=== PATIENT | male | born 1990 | race African-American/Black ===

== ENCOUNTER 2016-07-28 12:35 | Emergency (ER) | payer OTHER ==
[~2016-07-28] VITALS: Ht 182.9 cm; Wt 70.3 kg
[2016-07-28 13:30] VITALS: BP 95/61
[2016-07-28] MEDS ORDERED: TYLENOL EXTRA500 MG ORAL (13:55)
[2016-07-28] MEDS ORDERED: ROBITUSSIN COU118 M4 PO (13:55)
[2016-07-28 14:04] VITALS: BP 95/61
--- NOTE | 2016-07-29 13:17 | Emergency Room Report ---
History of Present Illness General Chief Complaint: Flu Like Symptoms Source: Patient Present Illness [facility] The patient is a 25-year-old male who denies any medical history presenting for 2 days of productive cough, nasal congestion, and subjective fever. The patient also admits to a 5/10 headache. The patient denies recent travel or sick contacts. The patient denies nausea, vomiting, abdominal pain, diarrhea, dizziness, shortness of breath Allergies: Coded Allergies: No Known Allergies (Unverified , 07/28/16) Patient History Past Medical History: see triage record Pertinent Family History: none Reviewed Nursing Documentation: PMH: Agreed, PSxH: Agreed Nursing Documentation-PM Past Medical History: No Stated History Review of Systems All Other Systems: negative except mentioned in HPI Physical Exam Vital Signs Date Time Temp Pulse Resp B/P Pulse Ox O2 Delivery O2 Flow Rate FiO2 07/28/16 12:45 98.2 93 18 95/61 98 Room Air Sp02 EP Interpretation: reviewed, normal General Appearance: no apparent distress, alert, GCS 15, non-toxic Head: normocephalic, atraumatic Eyes: bilateral eye PERRL, bilateral eye normal inspection ENT: hearing grossly normal, normal pharynx, no angioedema, normal voice, TMs + canals normal, uvula midline, moist mucus membranes Neck: full range of motion, supple/symm/no masses Respiratory: chest non-tender, lungs clear, normal breath sounds, no respiratory distress, no wheezing, speaking full sentences Cardiovascular #1: regular rate, rhythm, no edema Cardiovascular #2: 2+ carotid (R), 2+ carotid (L), 2+ radial (R), 2+ radial (L) , 2+ dorsalis pedis (R), 2+ dorsalis pedis (L) Gastrointestinal: normal bowel sounds, non tender, soft, non-distended, no guarding, no rebound Rectal: deferred Genitourinary: normal inspection, no CVA tenderness Musculoskeletal: back normal, gait/station normal, normal range of motion, non- tender Neurologic: alert, oriented x3, responsive, motor strength/tone normal, sensory intact, speech normal Psychiatric: judgement/insight normal, memory normal, mood/affect normal, no suicidal/homicidal ideation Reflexes: 3+ bicep (R), 3+ bicep (L), 3+ tricep (R), 3+ tricep (L), 3+ knee (R) , 3+ knee (L) Skin: normal color, no rash, warm/dry, well hydrated Lymphatic: no adenopathy Medical Decision Making PA Attestation Dr. Ga is my supervising physician. Patient management was discussed with my supervising physician Diagnostic Impression: Primary Impression: Viral URI ER Course The patient is a 25-year-old male who denies any medical history presenting for 2 days of productive cough, nasal congestion, and subjective fever. Differential diagnosis include but not limited to pharyngitis, bronchitis, sinusitis, pneumonia, rhinitis PE: No apparent distress. Afebrile No TTP over maxillary or frontal sinuses. Lungs CTA bilat. No wheezing. No accessory muscle use. Heart: RRR, no abnormal heart sounds Ears: external auditory canal clear. Non erythematous. Bilat TM intact. Cone of light present bilat. No bulging of TM. No serous fluid seen. + nasal D/C No anterior cervical lymphad No tonsillar exudate. Uvula midline.Oropharynx non erythematous This is most likely viral in nature. The patient will be treated with Tylenol and Robitussin-DM. ER precautions are given Last Vital Signs Date Time Temp Pulse Resp B/P Pulse Ox O2 Delivery O2 Flow Rate FiO2 07/28/16 14:04 98.2 93 18 95/61 98 Room Air Status: improved Disposition: HOME, SELF-CARE Condition: Improved Scripts Acetaminophen* (TYLENOL EXTRA STRENGTH*) 500 Mg Tablet 500 MG ORAL Q8H Y for Prn Headache/Temp > 101, #30 TAB 0 Refills Prov: TERZIAN,RICO P.A. 07/28/16 Guaifenesin/Dextromethorphan (Robitussin Cough-Chest Dm Liq) 118 Ml Liquid 10 ML PO Q4HR, #118 ML Prov: TERZIAN,RICO P.A. 07/28/16 Departure Forms: Return to Work Return to Work Date: Jul 30, 2016 Patient Instructions: Viral Respiratory Infection Additional Instructions: I discussed my findings with the patient. All questions and concerns have been answered. Treatment and medication compliance have been addressed. I advised the patient that they need to follow up with PMD in 3-5 days. Return to ED if pain remains or worsens, cough worsens or remains, you notice blood in your sputum, you notice wheezing, you experience a fever, or if needed for any reason. Patient verbalized understanding of discharge instructions. RICO WILSON Jul 29, 2016 13:17
== END 2016-07-28 14:04 | disposition home or self-care (01) ==
LOC: EMR 13:03
DX: J06.9 Acute upper respiratory infection, unspecified (principal)
CPT/HCPCS: 99282